=== PATIENT | male | born 1965 | race African-American/Black ===

== ENCOUNTER 2017-02-02 18:36 | Emergency (ER) | payer OTHER ==
[~2017-02-02 18:36] MED LIST: FLEXERIL10 MG PO; ZOLOFT50 MG PO
== END 2017-02-02 20:35 | disposition home or self-care (01) ==
LOC: CFTX 18:36 → CED 18:36 → CFTX 19:49
DX: S61.236A Puncture wound without foreign body of right little finger without damage to nail, initial encounter (principal); I10 Essential (primary) hypertension; Z79.899 Other long term (current) drug therapy; Z23 Encounter for immunization; W20.8XXA Other cause of strike by thrown, projected or falling object, initial encounter; Y92.830 Public park as the place of occurrence of the external cause
CPT/HCPCS: 64450; 90471; 90715; 99283